=== PATIENT | female | born 1960 | race Two or more races ===

== ENCOUNTER 2020-01-19 10:40 | Outpatient (CLI) | payer MEDICAID ==
[~2020-01-19] VITALS: Ht 162.6 cm; Wt 62.1 kg
[2020-01-19] MEDS ORDERED: ANORO ELLIPTA1 EACH (11:10)
[2020-01-19] MEDS ORDERED: SYNTHROID25 MCG ORAL (11:10)
[2020-01-19] MEDS ORDERED: AMLODIPINE BESYL5 MG ORAL (11:10)
[2020-01-19 11:11] VITALS: BP 131/77
--- NOTE | 2020-01-19 17:59 | Consultation ---
DATE OF CONSULTATION: 01/19/2020 CONSULTING PHYSICIAN: Calixto Tenorio M.D. CHIEF COMPLAINT: Rectal bleeding. HISTORY OF PRESENT ILLNESS: This is a 59-year-old female with past medical history of rectal bleeding, had 2 colonoscopies, 1 in 2014, 1 last year by , which showed evidence of one colonic polyp, internal hemorrhoids. According to the patient, she on and off bleeds from the hemorrhoids and has not had the bleeding for few months, but she was told to follow up with GI. PAST MEDICAL HISTORY: 1. Colonic polyps. 2. Hypertension. 3. Hypothyroidism. 4. GERD. PAST SURGICAL HISTORY: 1. Left breast lump removal. 2. Right shoulder surgery. MEDICATIONS: Please see medication reconciliation list. FAMILY HISTORY: Noncontributory. SOCIAL HISTORY: The patient drinks socially and smokes. Denies any IV drug abuse. ALLERGIES: To sulfa, Keflex, Wellbutrin, lisinopril. REVIEW OF SYSTEMS: Positive for GERD, diarrhea, rectal bleeding, bloating. PHYSICAL EXAMINATION: VITAL SIGNS: Temperature 98.2, blood pressure 131/77, pulse 80, respirations 20. HEENT: Normocephalic, atraumatic. Sclerae anicteric. NECK: Supple. No evidence of obvious adenopathy. CARDIOVASCULAR: Regular rate and rhythm. Plus S1-S2. LUNGS: Decreased breath sounds bilaterally based on the supine exam. ABDOMEN: Soft, nontender. No rebound. No guarding. No peritoneal sign. EXTREMITIES: No cyanosis, no clubbing, no edema. ASSESSMENT AND PLAN: The patient is a 59-year-old female with rectal bleeding, most probably secondary to hemorrhoids, has had 2 colonoscopies, last one last year. The patient was given reassurance. She was given Anusol cream to use as suppository as needed. The patient denies any constipation at this time. Bleeding has stopped for last 3 months. The patient was instructed to come back if she has recurrent bleeding. Calixto Tenorio M.D. DR: MIKY JOB#: [id number] CC:
[2020-02-01] MEDS ORDERED: ANUSOL-HC25 MG RECTAL (10:49)
== END 2020-01-19 14:40 | disposition home or self-care (01) ==
LOC: PAN 10:40
DX: K62.5 Hemorrhage of anus and rectum (principal); I10 Essential (primary) hypertension; E03.9 Hypothyroidism, unspecified; K21.9 Gastro-esophageal reflux disease without esophagitis; Z86.010 Personal history of colon polyps; R14.0 Abdominal distension (gaseous)
CPT/HCPCS: G0463